=== PATIENT | female | born 1990 | race Caucasian/White ===

== ENCOUNTER 2017-02-09 12:46 | Emergency (ER) | payer BC ==
[2017-02-09 12:51] VITALS: TEMP 97.9
[2017-02-09] MEDS ORDERED: NS 1,000 ML IV ONE ×2 (13:23)
[2017-02-09] MEDS ORDERED: ONDANSETRON 4 MG/2 ML VIAL IVP ONE (13:24)
--- NOTE | 2017-02-09 13:41 | EDPHY ---
H & P Stated Complaint: N&V dizzy new bruise Source: Patient Exam Limitations: No limitations - Personal History LMP (Females 10-55): 15-21 Days Ago Current Tetanus/Diphtheria Vaccine: Yes Current Tetanus Diphtheria and Acellular Pertussis (TDAP): Yes Tetanus Vaccine Date: within 10 yrs - Medical/Surgical History Hx Asthma: Yes Hx Chronic Respiratory Disease: No Hx Diabetes: No Hx Cardiac Disease: No Hx Renal Disease: No Hx Cirrhosis: No Hx Alcoholism: No Hx HIV/AIDS: No Hx Splenectomy or Spleen Trauma: No Other PMH: ASTHMA, ABNORMAL LUNG ABCESS, SCOLIOSIS, AUTOIMMUNE LOW THYROID, [place] - 2016, HTN, ADHD, FIBROMYALGIA - Social History Smoking Status: Former smoker Time Seen by Provider: 02/09/17 12:55 HPI/ROS: CHIEF COMPLAINT: Nausea and vomiting HISTORY OF PRESENT ILLNESS: The patient presents to the ED with a 1 day history of nausea and vomiting. She is concerned that she may have some bruising on the left side of her chest. She denies history of fall or trauma. The patient denies fever or dysuria. She denies history of significant abdominal issues. The patient reportedly took a Suboxone pill yesterday that was given to her by a friend. She denies taking any additional medication today. The patient denies any dysuria. She denies fever, cough or congestion. She has had several episodes of bilious vomiting today. REVIEW OF SYSTEMS: A comprehensive 10 point review of systems is otherwise negative aside from elements mentioned in the history of present illness. (Jimmy Negrete) - Physical Exam Exam: General Appearance: Alert, retching, no acute distress Eyes: Pupils equal and round no pallor or injection ENT, Mouth: Mucous membranes moist Respiratory: There are no retractions, lungs are clear to auscultation Cardiovascular: Regular rate and rhythm Gastrointestinal: Abdomen is soft and nontender, no masses, bowel sounds normal Neurological: A&O, normal motor function, normal sensory exam, normal cranial nerves Skin: Warm and dry, no rashes no obvious bruising noted on chest wall Musculoskeletal: Neck is supple nontender Extremities: symmetrical, full range of motion (Jimmy Negrete) Constitutional: Initial Vital Signs Temperature (C) 36.6 C 02/09/17 12:49 Heart Rate 84 02/09/17 12:49 Respiratory Rate 14 02/09/17 12:49 Blood Pressure 130/72 H 06/04/17 12:49 O2 Sat (%) 98 02/09/17 12:49 O2 Delivery Mode Room Air Allergies/Adverse Reactions: Sulfa (Sulfonamide Antibiotics) Allergy (Verified 07/02/16 18:24) Home Medications: Medication Instructions Recorded Deplin-Algal Oil 7.5 mg Cap 02/13/16 Albuterol [Proventil Inhaler HFA 07/02/16 (*)] Desloratadine/Pseudoephedrine 1 each PO BID #8 tbmp.12hr 07/02/16 [Clarinex-D 12 Hour Tablet] Hydrocodone/APAP 5/325 [[place] 1 tab PO Q4 #10 tab 07/29/16 5/325 (*)] oxyCODONE/APAP 5/325 [Percocet 1 tab PO Q4H #10 tab 07/29/16 5/325 (*)] Ondansetron Odt [Zofran Odt] 4 mg PO Q4PRN PRN #20 tab 02/09/17 Medical Decision Making ED Course/Re-evaluation: The patient had an IV established. I detect no obvious significant bruising on her chest wall. She was noted to have minimal epigastric tenderness on exam. Her chief complaint is really one of nausea and vomiting. The patient had an IV established and received 4 mg of IV Zofran. The patient will have screening laboratory studies sent. I anticipate she should be able to be discharged home if her laboratory studies are unremarkable. The patient will be turned over to Dr. Oviedo at shift change pending reassessment. (Jimmy Negrete) Differential Diagnosis: The differential diagnosis considered includes pancreatitis, peptic ulcer disease, dehydration, gastroenteritis (Jimmy Negrete) Other Provider: I was asked by Dr. Negrete to check patient's labs and re-evaluate her with plan of likely discharge home if normal. At 4:15pm, the patient is eager to go home and her labs are normal. She is not interested in further observation or workup. Per plan, we will discharge patient home. (Melchor Oviedo) - Data Points Laboratory Results: Laboratory Results 02/09/17 14:11 02/09/17 14:57 02/09/17 02/09/17 02/09/17 14:57 14:57 14:11 WBC RBC Hgb Hct MCV MCH MCHC RDW Plt Count MPV Neut % (Auto) Lymph % (Auto) Rowan % (Auto) Eos % (Auto) Baso % (Auto) Nucleat RBC Rel Count Absolute Neuts (auto) Absolute Lymphs (auto) Absolute Monos (auto) Absolute Eos (auto) Absolute Basos (auto) Absolute Nucleated RBC Immature Gran % Immature Gran # Sodium 139 mEq/L mEq/L REJ (134-144) Potassium 3.7 mEq/L mEq/L Not Reported (3.5-5.2) Chloride 103 mEq/L mEq/L Not Reported (97-110) Carbon Dioxide 26 mEq/l mEq/l Not Reported (22-31) Anion Gap 10 mEq/L mEq/L Not Reported (8-16) BUN 15 mg/dL mg/dL Not Reported (7-23) Creatinine 0.7 mg/dL mg/dL Not Reported (0.6-1.0) Estimated GFR > 60 Not Reported Glucose 88 mg/dL mg/dL Not Reported (70-100) Calcium 9.3 mg/dL mg/dL Not Reported (8.5-10.4) Total Bilirubin 0.6 mg/dL mg/dL Not Reported (0.1-1.4) Conjugated Bilirubin 0.4 mg/dL mg/dL Not Reported (0.0-0.5) Unconjugated Bilirubin 0.2 mg/dL mg/dL Not Reported (0.0-1.1) AST 26 IU/L IU/L Not Reported (14-46) ALT 23 IU/L IU/L Not Reported (9-52) Alkaline Phosphatase 54 IU/L IU/L Not Reported (38-126) Total Protein 7.4 g/dL g/dL REJ (6.3-8.2) Albumin 4.2 g/dL g/dL Not Reported (3.5-5.0) Lipase 145.0 IU/L IU/L REJ (23-300) Beta HCG, Qual NEGATIVE 02/09/17 14:11 WBC 7.98 10^3/uL 10^3/uL (3.80-9.50) RBC 5.02 10^6/uL 10^6/uL (4.18-5.33) Hgb 15.8 g/dL g/dL (12.6-16.3) Hct 47.3 % H % (38.0-47.0) MCV 94.2 fL fL (81.5-99.8) MCH 31.5 pg pg (27.9-34.1) MCHC 33.4 g/dL g/dL (32.4-36.7) RDW 12.8 % % (11.5-15.2) Plt Count 299 10^3/uL 10^3/uL (150-400) MPV 9.6 fL fL (8.7-11.7) Neut % (Auto) 54.6 % % (39.3-74.2) Lymph % (Auto) 37.7 % % (15.0-45.0) Rowan % (Auto) 5.1 % % (4.5-13.0) Eos % (Auto) 2.0 % % (0.6-7.6) Baso % (Auto) 0.5 % % (0.3-1.7) Nucleat RBC Rel Count 0.0 % % (0.0-0.2) Absolute Neuts (auto) 4.35 10^3/uL 10^3/uL (1.70-6.50) Absolute Lymphs (auto) 3.01 10^3/uL H 10^3/uL (1.00-3.00) Absolute Monos (auto) 0.41 10^3/uL 10^3/uL (0.30-0.80) Absolute Eos (auto) 0.16 10^3/uL 10^3/uL (0.03-0.40) Absolute Basos (auto) 0.04 10^3/uL 10^3/uL (0.02-0.10) Absolute Nucleated RBC 0.00 10^3/uL 10^3/uL (0-0.01) Immature Gran % 0.1 % % (0.0-1.1) Immature Gran # 0.01 10^3/uL 10^3/uL (0.00-0.10) Sodium Potassium Chloride Carbon Dioxide Anion Gap BUN Creatinine Estimated GFR Glucose Calcium Total Bilirubin Conjugated Bilirubin Unconjugated Bilirubin AST ALT Alkaline Phosphatase Total Protein Albumin Lipase Beta HCG, Qual Medications Given: Discontinued Medications Sodium Chloride (Ns) 1,000 mls @ 0 mls/hr IV ONCE ONE PRN Reason: Wide Open Stop: 02/09/17 13:24 Last Admin: 02/09/17 14:17 Dose: 1,000 mls Sodium Chloride (Ns) 1,000 mls @ 0 mls/hr IV ONCE ONE PRN Reason: Wide Open Stop: 02/09/17 13:24 Last Admin: 02/09/17 14:18 Dose: 1,000 mls Ondansetron HCl (Zofran) 4 mg IVP EDNOW ONE Stop: 02/09/17 13:25 Last Admin: 02/09/17 14:18 Dose: 4 mg Departure - Departure Disposition: Home, Routine, Self-Care Clinical Impression: Vomiting Condition: Good Instructions: Acute Nausea and Vomiting (ED) Additional Instructions: Return to the ED for fever, abdominal pain, continued vomiting. Follow-up with your doctor within 72 hours. Referrals: PCP,NOT SURE [Other] - As per Instructions Prescriptions: Ondansetron Odt [Zofran Odt] 4 mg PO Q4PRN PRN #20 tab PRN Reason: For Nausea
[2017-02-09 14:21] LABS: % IMMATURE GRANULYOCYTES 0.1 % (0.0-1.1); ABSOLUTE IMMATURE GRANULOCYTES 0.01 10^3/uL (0.00-0.10); ADD DIFF? NO; ADD MORPH? NO; ADD SCAN? NO; ATYPICAL LYMPHOCYTE FLAG 10 (0-99); FRAGMENT RBC FLAG 0 (0-99); HEMATOCRIT 47.3 % (38.0-47.0); HEMOGLOBIN 15.8 g/dL (12.6-16.3); LEFT SHIFT FLG 0 (0-99); LIPEMIA HEMOLYSIS FLAG 80 (0-99); MEAN CELL HEMOGLOBIN 31.5 pg (27.9-34.1); MEAN CELL HEMOGLOBIN CONCENTR. 33.4 g/dL (32.4-36.7); MEAN CELL VOLUME 94.2 fL (81.5-99.8); MEAN PLATELET VOLUME 9.6 fL (8.7-11.7); PLATELET CLUMPS FLAG 20 (0-99); PLATELET COUNT 299 10^3/uL (150-400); RED BLOOD CELL COUNT 5.02 10^6/uL (4.18-5.33); RED CELL DISTRIBUTION WIDTH 12.8 % (11.5-15.2)
[2017-02-09 15:42] LABS: ALANINE AMINOTRANSFERASE 23 IU/L (9-52); ALBUMIN 4.2 g/dL (3.5-5.0); ALKALINE PHOSPHATASE 54 IU/L (38-126); ASPARTATE AMINOTRANSFERASE 26 IU/L (14-46); BILIRUBIN,TOTAL 0.6 mg/dL (0.1-1.4); BILIRUBIN-CONJUGATED 0.4 mg/dL (0.0-0.5); BILIRUBIN-UNCONJUGATED 0.2 mg/dL (0.0-1.1); CALCIUM 9.3 mg/dL (8.5-10.4); CARBON DIOXIDE 26 mEq/l (22-31); CHLORIDE 103 mEq/L (97-110); CREATININE 0.7 mg/dL (0.6-1.0); GLOMERULAR FILTRATION RATE > 60; GLUCOSE 88 mg/dL (70-100); SODIUM 139 mEq/L (134-144); TOTAL PROTEIN 7.4 g/dL (6.3-8.2)
[2017-02-09 15:56] LABS: ANION GAP 10 mEq/L (8-16); POTASSIUM 3.7 mEq/L (3.5-5.2)
[2017-02-09 16:32] VITALS: BP 119/87; PULSE 80; RESP 16; O2SAT 97
== END 2017-02-09 16:32 | disposition home or self-care (01) ==
DX: R11.10 Vomiting, unspecified (principal); J45.909 Unspecified asthma, uncomplicated; I25.2 Old myocardial infarction; I10 Essential (primary) hypertension; Z87.891 Personal history of nicotine dependence
CPT/HCPCS: 96374; J2405